=== PATIENT | male | born 1995 | race Caucasian/White ===

== ENCOUNTER 2017-04-09 08:26 | Emergency (ER) | payer OTHER ==
[~2017-04-09] VITALS: Ht 182.9 cm; Wt 63.4 kg
[2017-04-09] MEDS ORDERED: AMOXICILLIN875 MG PO (09:36)
[2017-04-09] MEDS ORDERED: ACETAMINOPHEN-1 EAC1 PO (09:38)
[2017-04-09 09:39] LABS: HEMATOCRIT 38.2 % (38.0-50.0); MCH 31.2 PG (29.0-34.0); MCHC 36.1 G/DL (30.0-36.0); MCV 86.2 FL (86-99); MEAN PLAT.VOLUME 10.6 uM^3 (9.0-12.4); PLATELET COUNT 184 K/uL (156-360); RBC DIS.WIDTH-CV 11.7 % (11.8-14.6); RED BLOOD COUNT 4.43 M/uL (4.00-5.50); WHITE BLOOD COUNT 8.1 K/uL (4.1-10.2)
[2017-04-09 09:48] LABS: CHLORIDE 105 mEq/L (99-109); POTASSIUM 3.5 mEq/L (3.7-5.4); SODIUM 139 mEq/L (136-147)
[2017-04-09 09:50] LABS: GLUCOSE 92 mg/dL (70-99)
[2017-04-09 09:51] LABS: ANION GAP 13 MEQ/L (2-14)
[2017-04-09 09:52] LABS: TOTAL BILIRUBIN 1.9 mg/dL (0.0-1.0)
[2017-04-09 09:53] LABS: ALKALINE PHOSPHATASE 65 IU/L (3-129)
[2017-04-09 09:54] LABS: GFR ESTIMATE (CALCULATED) > 59 mL/min/
[2017-04-09 09:55] LABS: UREA NITROGEN (BUN) 12 mg/dL (9-23)
[2017-04-09 10:15] LABS: DIRECT BILIRUBIN 0.6 mg/dL (0.0-0.3)
[2017-04-09 10:21] LABS: LIPASE 12 U/L (1.0-51.0)
[2017-04-09] MEDS ORDERED: ZOFRAN ODT4 MG PO (11:36)
[2017-04-09] MEDS ORDERED: IBUPROFEN600 MG PO (11:36)
[2017-04-09 12:33] VITALS: BP 107/52
[2017-04-09] MEDS ORDERED: TYLENOL WITH C1 EACH PO (12:53)
== END 2017-04-09 12:58 | disposition home or self-care (01) ==
LOC: EME 08:26
PROVIDERS: Emergency Medicine
DX: B34.9 Viral infection, unspecified (principal); K02.9 Dental caries, unspecified; F17.200 Nicotine dependence, unspecified, uncomplicated
CPT/HCPCS: 80053; 80076; 81003; 82248; 83690; 85027; 87502; 99281; 99285; J1885; J2405; J7030; Q0169